=== PATIENT | male | born 1995 | race Caucasian/White ===

== ENCOUNTER → 2017-09-16 | Outpatient (CLI) | payer OTHER ==
[~2017-09-16] MED LIST: ALBUTEROL0.09 MG/A2 IH; AMOXICILLIN500 MG PO; ATIVAN1 MG PO; CIPRODEX 0.3%-7.5 ML OT; CLARITIN10 MG PO; DEPAKOTE500 MG PO; FIORICET 325 MG1 TAB PO; FLEXERIL10 MG PO; HYDROCODONE BIT1 T11 PO; LEVOFLOXACIN500 MG PO; LOMOTIL 0.025 M1 TA1 PO; MAXZIDE 25 MG-31 TAB PO; MOTRIN400 MG PO; MOTRIN600 MG PO; MOTRIN800 MG PO; Motrin,Rufen800 MG PO; NAPROSYN375 MG PO; NAPROSYN500 MG PO; NEURONTIN100 MG PO; NKHM; PRELONE5 MG/5 ML PO; RISPERDAL1 MG PO; TESSALON PERLE200 MG PO; TRIMOX500 MG PO; TYLENOL W/CODEI1 TA2 PO; VICODIN ES 7501 TAB PO; ZITHROMAX Z PA250 MG PO; ZOFRAN ODT4 MG SL; ZOFRAN4 MG PO; ZYPREXA10 MG PO
[2017-09-16 15:00] LABS: BASO % 0.6 % (0.0-1.0); EOS # 0.2 10*3/uL (0.0-0.4); EOS % 2.1 % (1.0-4.0); HEMATOCRIT 44.6 % (42.0-52.0); HEMOGLOBIN 15.1 g/dl (14.0-18.0); MEAN CELL VOLUME 88.1 fl (80.0-94.0); MEAN CORPUSCULAR HGB 29.8 pg (27.0-31.0); MEAN CORPUSCULAR HGB CONC 33.9 g/dl (33.0-37.0); MONO # 0.9 10*3/uL (0.1-1.0); NEUT % 56.2 % (47.0-73.0); PLATELET COUNT AUTOMATED 153 10*3/uL (130-400); RED BLOOD COUNT 5.06 10*6/uL (4.50-5.90); WHITE BLOOD COUNT 7.1 10*3/uL (4.8-10.8)
[2017-09-16 15:23] LABS: ALBUMIN 3.9 gm/dl (3.1-4.5); ALKALINE PHOSPHATASE 102 U/L (45-117); BUN 9 mg/dl (7-24); CHLORIDE 103 mmol/L (98-107); CHOLESTEROL 142 mg/dL (<200); CPK 258 U/L (39-308); CREATININE 1.05 mg/dL (0.70-1.30); HDL CHOLESTEROL 35 mg/dl (40-60); LDL CHOLESTEROL 73 mg/dL (9-159); POTASSIUM 3.9 mmol/L (3.5-5.1); SGOT/AST 89 IU/L (3-35); SGPT/ALT 184 U/L (12-78); SODIUM 139 mmol/L (136-145); TRIGLYCERIDES 172 mg/dl (<150); VLDL CHOLESTEROL 34 mg/dL (6-40)
[2017-09-18 17:09] LABS: CREATININE, RANDOM URINE 144.2 mg/dL (Not Estab.)
== END | disposition home or self-care (01) ==
LOC: LAB 14:19
PROVIDERS: Pediatrics
DX: Z00.01 Encounter for general adult medical examination with abnormal findings (principal)

== ENCOUNTER 2018-05-14 00:27 | Inpatient (IN) | payer OTHER ==
[~2018-05-14] VITALS: Ht 182.8 cm; Wt 97.7 kg
--- NOTE | ~2018-05-14 | EKG ---
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
[2018-05-14 00:29] VITALS: BP 128/72
[2018-05-14 00:56] LABS: BASO # 0.1 10*3/uL (0.0-0.1); BASO % 0.3 % (0.0-1.0); EOS # 0.2 10*3/uL (0.0-0.4); EOS % 1.1 % (1.0-4.0); HEMATOCRIT 45.9 % (42.0-52.0); HEMOGLOBIN 15.4 g/dl (14.0-18.0); LYMPH # 2.4 10*3/uL (1.3-4.4); LYMPH % 15.3 % (27.0-41.0); MEAN CELL VOLUME 88.4 fl (80.0-94.0); MEAN CORPUSCULAR HGB 29.7 pg (27.0-31.0); MEAN CORPUSCULAR HGB CONC 33.6 g/dl (33.0-37.0); MEAN PLATELET VOLUME 10.4 fl (9.6-12.3); MONO # 1.4 10*3/uL (0.1-1.0); MONO % 8.7 % (3.0-9.0); NEUT # 11.8 10*3/uL (2.3-7.9); NEUT % 74.2 % (47.0-73.0); PLATELET COUNT AUTOMATED 249 10*3/uL (130-400); RED BLOOD COUNT 5.19 10*6/uL (4.50-5.90); RED CELL DISTRI WIDTH 13.2 % (0-14.5); WHITE BLOOD COUNT 15.9 10*3/uL (4.8-10.8)
[2018-05-14 01:12] LABS: ALBUMIN 3.7 gm/dl (3.1-4.5); ALKALINE PHOSPHATASE 94 U/L (45-117); BUN 13 mg/dl (7-24); CHLORIDE 103 mmol/L (98-107); CREATININE 1.06 mg/dL (0.70-1.30); POTASSIUM 3.4 mmol/L (3.5-5.1); SGOT/AST 26 IU/L (3-35); SGPT/ALT 62 U/L (12-78); SODIUM 137 mmol/L (136-145); TOTAL PROTEIN 8.2 gm/dL (6.4-8.2)
[2018-05-14 02:15] VITALS: BP 136/72
[2018-05-14] MEDS ORDERED: CLONAZEPAM1 MG PO (02:59)
[2018-05-14] MEDS ORDERED: SEROQUEL50 MG PO (03:00)
[2018-05-14] MEDS ORDERED: LISINOPRIL20 MG PO (03:00)
[2018-05-14] MEDS ORDERED: PROTONIX40 MG PO (03:01)
[2018-05-14] MEDS ORDERED: VIVITROL380 MG IM (03:01)
[2018-05-14 04:00] VITALS: BP 135/76
[2018-05-14 12:00] VITALS: BP 144/77
[2018-05-14 15:49] LABS: URINE AMPHETAMINES < 1000 (1000ng/ml); URINE BARBITURATES < 200 (200ng/ml); URINE BENZODIAZEPINES < 200 (200ng/ml); URINE CANNABINOIDS (THC) < 50 (50ng/ml); URINE COCAINE < 300 (300ng/ml); URINE METHADONE < 300 (300ng/ml); URINE OPIATES < 300 (300ng/ml)
[2018-05-14 15:56] LABS: URINE PHENCYCLIDINE < 25 (25ng/ml)
[2018-05-14 16:00] VITALS: BP 125/69
[2018-05-14 20:00] VITALS: BP 146/85
[2018-05-15] VITALS: BP 146/73
[2018-05-15 07:27] LABS: BASO # 0.1 10*3/uL (0.0-0.1); BASO % 0.5 % (0.0-1.0); EOS # 0.3 10*3/uL (0.0-0.4); EOS % 2.6 % (1.0-4.0); LYMPH # 2.3 10*3/uL (1.3-4.4); LYMPH % 24.7 % (27.0-41.0); MEAN CELL VOLUME 88.7 fl (80.0-94.0); MEAN CORPUSCULAR HGB 29.5 pg (27.0-31.0); MEAN CORPUSCULAR HGB CONC 33.2 g/dl (33.0-37.0); MONO # 1.3 10*3/uL (0.1-1.0); MONO % 14.1 % (3.0-9.0); NEUT # 5.5 10*3/uL (2.3-7.9); NEUT % 57.7 % (47.0-73.0); PLATELET COUNT AUTOMATED 202 10*3/uL (130-400); RED BLOOD COUNT 4.17 10*6/uL (4.50-5.90); RED CELL DISTRI WIDTH 13.2 % (0-14.5); WHITE BLOOD COUNT 9.5 10*3/uL (4.8-10.8)
[2018-05-15 07:28] LABS: HEMOGLOBIN 12.3 g/dl (14.0-18.0)
[2018-05-15 07:40] LABS: ACT PARTIAL THROMBO TIME 24.5 SECONDS (20.8-31.5)
[2018-05-15 07:51] LABS: BUN 6 mg/dl (7-24); CHLORIDE 110 mmol/L (98-107); CHOLESTEROL 97 mg/dL (<200); CREATININE 0.67 mg/dL (0.70-1.30); FREE T4 1.13 ng/dl (0.76-1.46); HDL CHOLESTEROL 35 mg/dl (40-60); LDL CHOLESTEROL 52 mg/dL (9-159); PHOSPHOROUS 2.7 mg/dL (2.5-4.9); POTASSIUM 3.7 mmol/L (3.5-5.1); SODIUM 142 mmol/L (136-145); TRIGLYCERIDES 48 mg/dl (<150); VLDL CHOLESTEROL 10 mg/dL (6-40)
[2018-05-15 07:58] LABS: THYROID STIM HORMONE (HS) 0.961 uIU/ml (0.358-4.75)
[2018-05-15 08:00] VITALS: BP 113/61
[2018-05-15 12:00] VITALS: BP 140/91
[2018-05-15 16:00] VITALS: BP 147/87
[2018-05-15 20:00] VITALS: BP 140/76
[2018-05-16] VITALS: BP 127/72
[2018-05-16 08:00] VITALS: BP 115/55
[2018-05-16 12:00] VITALS: BP 127/67
[2018-05-16] MEDS ORDERED: BACTRIM 400-801 EACH PO (12:54)
[2018-05-16] MEDS ORDERED: CYCLOBENZAPRINE10 MG PO (12:54)
[2018-05-16 16:00] VITALS: BP 138/70
[2018-05-16 20:00] VITALS: BP 154/98
[2018-05-17] VITALS: BP 143/87
[2018-05-17 08:00] VITALS: BP 110/59
[2018-05-17] MEDS ORDERED: KETOROLAC10 MG PO (11:06)
[2018-05-17 16:39] LABS: VITAMIN D, 25-HYDROXY 15.8 ng/mL (30-100)
== END 2018-05-17 11:57 | disposition home or self-care (01) | DRG 872 ==
LOC: ED 00:27 → EDHOLD 01:10 → 5E 01:10
PROVIDERS: Internal Medicine; Student in an Organized Health Care Education/Training Program
DX: A41.9 Sepsis, unspecified organism (principal); L03.113 Cellulitis of right upper limb; L02.413 Cutaneous abscess of right upper limb; F19.10 Other psychoactive substance abuse, uncomplicated; E87.6 Hypokalemia; F41.9 Anxiety disorder, unspecified; E66.3 Overweight; J45.20 Mild intermittent asthma, uncomplicated; I10 Essential (primary) hypertension; G47.00 Insomnia, unspecified; R73.9 Hyperglycemia, unspecified; K21.9 Gastro-esophageal reflux disease without esophagitis; Z22.322 Carrier or suspected carrier of Methicillin resistant Staphylococcus aureus; Z72.0 Tobacco use; Z71.6 Tobacco abuse counseling; Z83.3 Family history of diabetes mellitus; Z79.899 Other long term (current) drug therapy; Z22.321 Carrier or suspected carrier of Methicillin susceptible Staphylococcus aureus; Z68.29 Body mass index [BMI] 29.0-29.9, adult

== ENCOUNTER 2018-08-01 23:51 | Inpatient (IN) | payer OTHER ==
--- NOTE | ~2018-08-01 | EKG ---
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
[~2018-08-01 23:51] MED LIST changes: +BACTRIM 400-801 EACH PO; +CLONAZEPAM1 MG PO; +CYCLOBENZAPRINE10 MG PO; +KETOROLAC10 MG PO; +LISINOPRIL20 MG PO; +PROTONIX40 MG PO; +SEROQUEL50 MG PO; +VIVITROL380 MG IM
[2018-08-01 23:54] VITALS: BP 133/65
[2018-08-02 01:17] LABS: BASO # 0.1 10*3/uL (0.0-0.1); BASO % 0.8 % (0.0-1.0); EOS # 0.3 10*3/uL (0.0-0.4); EOS % 3.3 % (1.0-4.0); HEMATOCRIT 44.4 % (42.0-52.0); HEMOGLOBIN 14.5 g/dl (14.0-18.0); LYMPH # 3.1 10*3/uL (1.3-4.4); LYMPH % 39.1 % (27.0-41.0); MEAN CELL VOLUME 89.2 fl (80.0-94.0); MEAN CORPUSCULAR HGB 29.1 pg (27.0-31.0); MEAN CORPUSCULAR HGB CONC 32.7 g/dl (33.0-37.0); MONO # 1.1 10*3/uL (0.1-1.0); MONO % 13.9 % (3.0-9.0); NEUT # 3.4 10*3/uL (2.3-7.9); NEUT % 42.6 % (47.0-73.0); PLATELET COUNT AUTOMATED 186 10*3/uL (130-400); RED BLOOD COUNT 4.98 10*6/uL (4.50-5.90)
[2018-08-02 01:24] LABS: BILIRUBIN NEGATIVE (NEGATIVE); BLOOD NEGATIVE (NEGATIVE); CLARITY CLEAR (CLEAR); COLOR YELLOW (YELLOW); GLUCOSE NEGATIVE (NEGATIVE); KETONE NEGATIVE (NEGATIVE); LEUKO ESTERASE NEGATIVE (NEGATIVE); NITRITE NEGATIVE (NEGATIVE); SPECIFIC GRAVITY >= 1.030 (1.005-1.030); UROBILINOGEN 0.2 E.U./dl (0.2-1.0)
[2018-08-02 01:34] LABS: ALKALINE PHOSPHATASE 112 U/L (45-117); BUN 8 mg/dl (7-24); CHLORIDE 110 mmol/L (98-107); POTASSIUM 3.7 mmol/L (3.5-5.1); SGOT/AST 87 IU/L (3-35); SGPT/ALT 143 U/L (12-78); SODIUM 140 mmol/L (136-145); TOTAL PROTEIN 6.7 gm/dL (6.4-8.2)
[2018-08-02 01:37] LABS: ACETAMINOPHEN (TYLENOL) < 5.0 ug/ml (10-30); ETHYL ALCOHOL < 3.0 mg/dl (<3); TROPONIN I < 0.015 ng/ml (<0.045)
[2018-08-02 01:42] LABS: URINE AMPHETAMINES > 1000 (1000ng/ml); URINE BARBITURATES < 200 (200ng/ml); URINE BENZODIAZEPINES > 200 (200ng/ml); URINE CANNABINOIDS (THC) > 50 (50ng/ml); URINE COCAINE > 300 (300ng/ml); URINE METHADONE < 300 (300ng/ml); URINE OPIATES > 300 (300ng/ml); URINE PHENCYCLIDINE < 25 (25ng/ml)
[2018-08-02 01:45] LABS: WBC 0-2 wbc/hpf (0-5)
--- NOTE | 2018-08-02 01:53 | NUR ---
Time: 155 A 23 year old MALE admitted to 5E under services of AURELIANO ALEJO DO. Pt. arrived via wheel chair from ER. Chief complaint: OPIATE WITHDRAWAL. PATIENT ORIENTED TO THE FLOOR 5E CALL LIGHT SYSTEM REVIEWED AND DEMONSTRATED. ALFONSO FLOOD
[2018-08-02 01:55] VITALS: BP 122/77
--- NOTE | 2018-08-02 02:10 | NUR ---
SR. MORALEZ NOTIFIED THAT PATIENT IS ON THE FLOOR AND MED REC IS UP-TO-DATE PER PT. ALSO NOTIFIED THAT PATIENT WANTED THE NICOTROL INHALER INSTEAD OF THE PATCHES. ORDERS RECEIVED FOR NICOTROL INHALER AND TO D/C NICOTINE PATCH AND NICORETTE GUM.
--- NOTE | 2018-08-02 05:33 | NUR ---
scheduled dose of subutex given. patient resting comfortable in bed. call light within reach.
[2018-08-02 08:00] VITALS: BP 124/62
--- NOTE | 2018-08-02 11:54 | NUR ---
PATIENT MEDICATED WITH ROBAXIN AT THIS TIME FOR COMPLAINTS OF MUSCLE ACHES. PATIENT ALSO GIVEN NICOTROL INHALER AND EDUCATED ON ITS USE. RN WILL CONTINUE TO MONITOR THIS PATIENT
[2018-08-02 12:00] VITALS: BP 108/58
--- NOTE | 2018-08-02 12:28 | NUR ---
PATIENT MEETS [facility]. PATIENT IS GOING TO FOLLOW UP WITH [facility] [place] FOR THE VIVITROL SHOT. PATIENT AGREES AND UNDERSTANDS HIS AFTERCARE PLAN. KERWIN PATRICIO B.A. SALES CLERK FOOD
[2018-08-02 16:00] VITALS: BP 128/64
[2018-08-02 20:00] VITALS: BP 133/66
[2018-08-03] VITALS: BP 118/49
[2018-08-03 08:00] VITALS: BP 124/67
--- NOTE | 2018-08-03 08:45 | NUR ---
MEDICATED WITH PRN PO MOTRIN FOR BACK ACHES, IMMODIUM FOR DIARRHEA, AND PROVIDED NICOTROL INHALER CARTRIDGE FOR SMOKING CRAVINGS.
--- NOTE | 2018-08-03 10:16 | NUR ---
Patient resting. Responding to scheduled an prn medications with fewer complaints of pain and anxiety.
[2018-08-03 12:00] VITALS: BP 128/90
--- NOTE | 2018-08-03 14:50 | NUR ---
MEDICATED WITH PRN PO IMMODIUM FOR EPISODE OF DIARRHEA X 1 FOLLOWING THE 4MG DOSE EARLIER.
--- NOTE | 2018-08-03 14:51 | NUR ---
PRN PO ROBAXIN, TYLENOL, AND VISTARIL EFFECTIVE FOR MUSCLE CRAMPS AND ACHES AND ANXIETY.
[2018-08-03 16:00] VITALS: BP 148/78
--- NOTE | 2018-08-03 17:03 | NUR ---
MEDICATED WITH PRN PO MOTRIN AND REQUIP FOR BODY ACHES AND RESTLESS LEGS.
--- NOTE | 2018-08-03 17:11 | NUR ---
MEDICATED WITH PRN PO MAALOX FOR INDIGESTION.
--- NOTE | 2018-08-03 18:26 | NUR ---
Patient resting. Responding to scheduled and prn medications with fewer complaints of pain and anxiety.
--- NOTE | 2018-08-03 18:54 | NUR ---
MEDICATED WITH PRN PO TYLENOL AND ROBAXIN FOR MUSCLE ACHES AND CRAMPS, ALSO VISTARIL FOR ANXIETY, ALSO NICOTROL CARTRIDGE FOR SMOKING CRAVINGS, AND ALSO IMMODIUM FOR CONTINUED DIARRHEA STOOLS.
[2018-08-03 20:00] VITALS: BP 134/60
--- NOTE | 2018-08-03 21:30 | NUR ---
PATIENT MEDICATED WITH TRAZODONE AND IMMODIUM FOR C/O OOSE STOOLS. SEE EMAR. REINFORCED USE OF CALL LIGHT
[2018-08-04] VITALS: BP 111/60
--- NOTE | 2018-08-04 | NUR ---
Patient resting. Responding to scheduled medications with fewer complaints of pain and anxiety.
--- NOTE | 2018-08-04 01:20 | NUR ---
PATIENT MEDICATED WITH ROBAXIN AND VISTARIL PER PRN ORDER FOR C/O MUSCLE ACHINESS AND ANXIETY. SEE EMAR. RINFORCED USE OF CALL LIGHT.
[2018-08-04 08:00] VITALS: BP 132/79
--- NOTE | 2018-08-04 09:00 | NUR ---
MEDICATED WITH PRN PO MOTRIN, ROBAXIN, VISTARIL FOR ANXIETY, AND REQUIP FOR RESTLESS LEGS. PROVIDED NICOTROL INHALER FOR SMOKING CRAVINGS.
--- NOTE | 2018-08-04 09:58 | NUR ---
MEDICATED WITH PRN PO IMMODIUM FOR DIARRHEA STOOL, PRN ZOFRAN AND BENTYL FOR NAUSEA AND ABDOMINAL CRAMPS.
--- NOTE | 2018-08-04 10:28 | NUR ---
Patient resting. Responding to scheduled and prn medications with fewer complaints of pain and anxiety.
[2018-08-04 12:00] VITALS: BP 113/53
--- NOTE | 2018-08-04 15:16 | NUR ---
PATIENT CHANGED HIS AFTERCARE PLAN. PATIENT STATED THAT HE WANTS TO GO TO [facility] IN [place] FOR HIS AFTERCARE PLAN. DE STAFF WILL FOLLOW UP WITH PATIENT CONCERNING HIS AFTERCARE APPOINTMENT. KERWIN PATRICIO B.A. VECTOR CONTROL SPECIALIST
[2018-08-04 16:00] VITALS: BP 120/58
--- NOTE | 2018-08-04 16:00 | NUR ---
MEDICATED WITH PRN PO VISTARIL, TYLENOL AND ROBAXIN FOR ANXIETY AND MUSCLE ACHES/CRAMPS.
--- NOTE | 2018-08-04 17:53 | NUR ---
MEDICATED WITH PRN PO ZOFRAN AND BENTYL FOR NAUSEA/ABDOMINAL CRAMPS, AND MOTRIN FOR BODY ACHES.
--- NOTE | 2018-08-04 18:42 | NUR ---
Patient resting. Responding to prn medications with fewer complaints of pain and anxiety.
[2018-08-04 20:00] VITALS: BP 132/53
[2018-08-05] VITALS: BP 132/75
[2018-08-05 08:00] VITALS: BP 136/86; BP 160/75
[2018-08-05] MEDS ORDERED: METHOCARBAMOL750 M1 PO (08:57)
--- NOTE | 2018-08-05 09:17 | NUR ---
MEDICATED WITH PRN PO ZOFRAN AND BENTYL FOR NAUSEA AND ABDOMINAL CRAMPS, IMMODIUM FOR DIARRHEA STOOL, MAALOX FOR STOMACH UPSET, AND MOTRIN FOR BODY ACHES.
[2018-08-05] MEDS ORDERED: ATARAX,VISTARIL50 MG PO (09:22)
[2018-08-05] MEDS ORDERED: DICYCLOMINE HCL20 MG PO (09:22)
[2018-08-05] MEDS ORDERED: ZOFRAN4 MG PO (09:22)
--- NOTE | 2018-08-05 09:57 | NUR ---
PRN ZOFRAN, BENTYL, MAALOX, AND MOTRIN EFFECTIVE, PER PATIENT.
--- NOTE | 2018-08-05 09:58 | NUR ---
Discharge instructions reviewed with patient. Patient receptive and verbalizes understanding. Follow-up care arranged. Written instructions given to patient. ANTONI BARKLEY
--- NOTE | 2018-08-05 10:03 | NUR ---
PATIENT DISCHARGED TO [facility], AMBULATORY, FOR TRANSPORT HOME BY PRIVATE VEHICLE WITH MOTHER.
[2019-03-01] MEDS ORDERED: SUBOXONE 8 MG-1 EACH SL (17:59)
[2019-03-01] MEDS ORDERED: PROTONIX40 MG PO (22:17)
== END 2018-08-05 10:03 | disposition home or self-care (01) | DRG 897 ==
LOC: ED 23:51 → 5E 08-02 00:55 → EDHOLD 08-02 00:55 → 5E 08-02 01:11
PROVIDERS: Nurse Practitioner Family; ADMIT Internal Medicine
DX: F11.23 Opioid dependence with withdrawal (principal); F41.9 Anxiety disorder, unspecified; G56.00 Carpal tunnel syndrome, unspecified upper limb; E87.8 Other disorders of electrolyte and fluid balance, not elsewhere classified; J45.909 Unspecified asthma, uncomplicated; I10 Essential (primary) hypertension; K21.9 Gastro-esophageal reflux disease without esophagitis; G47.00 Insomnia, unspecified; Z82.49 Family history of ischemic heart disease and other diseases of the circulatory system

== ENCOUNTER 2019-04-14 13:36 | Emergency (ER) | payer OTHER ==
[~2019-04-14] VITALS: Ht 182.8 cm; Wt 86.2 kg
[~2019-04-14 13:36] MED LIST changes: +ATARAX,VISTARIL50 MG PO; +DICYCLOMINE HCL20 MG PO; +METHOCARBAMOL750 M1 PO; +SUBOXONE 8 MG-1 EACH SL
[2019-04-14 14:27] LABS: BASO % 0.4 % (0.0-1.0); EOS % 0.1 % (1.0-4.0); HEMATOCRIT 40.7 % (42.0-52.0); HEMOGLOBIN 13.8 g/dl (14.0-18.0); LYMPH # 1.6 10*3/uL (1.3-4.4); LYMPH % 16.6 % (27.0-41.0); MEAN CELL VOLUME 86.4 fl (80.0-94.0); MEAN CORPUSCULAR HGB 29.3 pg (27.0-31.0); MEAN CORPUSCULAR HGB CONC 33.9 g/dl (33.0-37.0); MEAN PLATELET VOLUME 11.7 fl (9.6-12.3); MONO % 10.4 % (3.0-9.0); NEUT % 72.3 % (47.0-73.0); PLATELET COUNT AUTOMATED 141 10*3/uL (130-400); RED BLOOD COUNT 4.71 10*6/uL (4.50-5.90); WHITE BLOOD COUNT 9.7 10*3/uL (4.8-10.8)
[2019-04-14 14:42] LABS: ALBUMIN 4.4 gm/dl (3.1-4.5); ALKALINE PHOSPHATASE 117 U/L (45-117); BUN 20 mg/dl (7-24); CHLORIDE 107 mmol/L (98-107); CREATININE 0.97 mg/dL (0.70-1.30); POTASSIUM 3.1 mmol/L (3.5-5.1); SGOT/AST 78 IU/L (3-35); SGPT/ALT 134 U/L (12-78); SODIUM 138 mmol/L (136-145); TOTAL PROTEIN 8.6 gm/dL (6.4-8.2)
[2019-04-14] MEDS ORDERED: SEPTDS PO (15:08)
[2019-04-14] MEDS ORDERED: CEPHALEXIN500 M1 PO (15:08)
[2019-04-14] MEDS ORDERED: IBU800 MG PO (15:09)
== END 2019-04-14 15:10 | disposition home or self-care (01) ==
LOC: ED 13:36
PROVIDERS: Nurse Practitioner Family
DX: L02.413 Cutaneous abscess of right upper limb (principal); L03.113 Cellulitis of right upper limb; E87.6 Hypokalemia; F17.200 Nicotine dependence, unspecified, uncomplicated; Z86.14 Personal history of Methicillin resistant Staphylococcus aureus infection; Z79.899 Other long term (current) drug therapy

== ENCOUNTER 2019-07-04 12:08 | Emergency (ER) | payer OTHER ==
[~2019-07-04] VITALS: Ht 182.8 cm; Wt 79.4 kg
[~2019-07-04 12:08] MED LIST changes: +CEPHALEXIN500 M1 PO; +IBU800 MG PO; +SEPTDS PO
[2019-07-04 12:49] LABS: BASO # 0.1 10*3/uL (0.0-0.1); BASO % 0.6 % (0.0-1.0); EOS # 0.1 10*3/uL (0.0-0.4); HEMATOCRIT 43.4 % (42.0-52.0); HEMOGLOBIN 14.4 g/dl (14.0-18.0); LYMPH # 2.9 10*3/uL (1.3-4.4); LYMPH % 34.8 % (27.0-41.0); MEAN CELL VOLUME 85.6 fl (80.0-94.0); MEAN CORPUSCULAR HGB 28.4 pg (27.0-31.0); MEAN CORPUSCULAR HGB CONC 33.2 g/dl (33.0-37.0); MEAN PLATELET VOLUME 11.1 fl (9.6-12.3); NEUT # 4.2 10*3/uL (2.3-7.9); NEUT % 51.4 % (47.0-73.0); PLATELET COUNT AUTOMATED 192 10*3/uL (130-400); RED BLOOD COUNT 5.07 10*6/uL (4.50-5.90); RED CELL DISTRI WIDTH 13.2 % (0-14.5); WHITE BLOOD COUNT 8.2 10*3/uL (4.8-10.8)
[2019-07-04 13:08] LABS: ALBUMIN 4.5 gm/dl (3.1-4.5); BUN 16 mg/dl (7-24); CHLORIDE 107 mmol/L (98-107); CREATININE 0.84 mg/dL (0.70-1.30); POTASSIUM 3.4 mmol/L (3.5-5.1); SGOT/AST 108 IU/L (3-35); SGPT/ALT 85 U/L (12-78); SODIUM 139 mmol/L (136-145)
[2019-07-04 13:10] LABS: ALKALINE PHOSPHATASE 102 U/L (45-117); TOTAL PROTEIN 8.5 gm/dL (6.4-8.2)
[2019-07-04] MEDS ORDERED: ZYRTEC10 MG PO (13:58)
[2019-07-04] MEDS ORDERED: AMOXICILLIN500 M2 PO (13:58)
[2019-07-04] MEDS ORDERED: FLONASE ALLERG9.9 ML NAS (13:58)
== END 2019-07-04 14:26 | disposition home or self-care (01) ==
LOC: ED 12:08
PROVIDERS: Nurse Practitioner Family
DX: J01.90 Acute sinusitis, unspecified (principal); R20.2 Paresthesia of skin; R20.0 Anesthesia of skin; I10 Essential (primary) hypertension; J45.909 Unspecified asthma, uncomplicated; F17.200 Nicotine dependence, unspecified, uncomplicated; Z79.2 Long term (current) use of antibiotics; Z79.899 Other long term (current) drug therapy

== ENCOUNTER 2019-09-24 16:23 | Emergency (ER) | payer OTHER ==
[~2019-09-24] VITALS: Ht 182.8 cm; Wt 79.4 kg
[~2019-09-24 16:23] MED LIST changes: +AMOXICILLIN500 M2 PO; +FLONASE ALLERG9.9 ML NAS; +ZYRTEC10 MG PO
[2019-09-24] MEDS ORDERED: AMOXICILLIN500 M3 PO (18:53)
[2019-09-24] MEDS ORDERED: IBU800 MG PO (18:53)
== END 2019-09-24 19:05 | disposition home or self-care (01) ==
LOC: ED 16:23
DX: S02.5XXA Fracture of tooth (traumatic), initial encounter for closed fracture (principal); S00.432A Contusion of left ear, initial encounter; J06.9 Acute upper respiratory infection, unspecified; R51 Headache; F17.200 Nicotine dependence, unspecified, uncomplicated; Y04.2XXA Assault by strike against or bumped into by another person, initial encounter; Y93.89 Activity, other specified; Y92.89 Other specified places as the place of occurrence of the external cause; Y99.8 Other external cause status

== ENCOUNTER 2021-04-17 18:46 | Emergency (ER) | payer OTHER ==
[~2021-04-17 18:46] MED LIST changes: +AMOXICILLIN500 M3 PO
== END 2021-04-17 23:24 ==
LOC: ED 18:46
DX: M79.671 Pain in right foot (principal); Z53.21 Procedure and treatment not carried out due to patient leaving prior to being seen by health care provider

== ENCOUNTER 2022-03-29 14:39 | Emergency (ER) | payer OTHER ==
[~2022-03-29] VITALS: Wt 104.3 kg
[2022-03-29 16:37] LABS: BASO # 0.1 10*3/uL (0.0-0.1); BASO % 0.6 % (0.0-1.0); EOS # 0.2 10*3/uL (0.0-0.4); EOS % 1.7 % (1.0-4.0); HEMATOCRIT 45.4 % (42.0-52.0); LYMPH # 2.9 10*3/uL (1.3-4.4); LYMPH % 24.2 % (27.0-41.0); MEAN CORPUSCULAR HGB 28.7 pg (27.0-31.0); MEAN CORPUSCULAR HGB CONC 33.7 g/dl (33.0-37.0); MEAN PLATELET VOLUME 12.4 fl (9.6-12.3); MONO # 0.9 10*3/uL (0.1-1.0); MONO % 7.7 % (3.0-9.0); NEUT # 7.8 10*3/uL (2.3-7.9); NEUT % 65.5 % (47.0-73.0); PLATELET COUNT AUTOMATED 200 10*3/uL (130-400); RED BLOOD COUNT 5.34 10*6/uL (4.50-5.90); RED CELL DISTRI WIDTH 13.5 % (0-14.5); WHITE BLOOD COUNT 11.9 10*3/uL (4.8-10.8)
[2022-03-29 16:46] LABS: ALKALINE PHOSPHATASE 123 U/L (45-117); BUN 11 mg/dl (7-24); CHLORIDE 107 mmol/L (98-107); CREATININE 0.77 mg/dL (0.70-1.30); POTASSIUM 3.5 mmol/L (3.5-5.1); SGOT/AST 37 IU/L (3-35); SGPT/ALT 52 U/L (12-78); SODIUM 138 mmol/L (136-145); TOTAL PROTEIN 8.1 gm/dL (6.4-8.2)
[2022-03-29] MEDS ORDERED: SEPTDS PO (17:47)
[2022-03-29] MEDS ORDERED: TYLENOL325 M1 PO (17:48)
[2022-03-29] MEDS ORDERED: NAPROXEN250 MG PO (17:48)
== END 2022-03-29 18:06 | disposition left against medical advice (07) ==
LOC: ED 14:39
PROVIDERS: Emergency Medicine
DX: L02.511 Cutaneous abscess of right hand (principal); L03.113 Cellulitis of right upper limb; F41.9 Anxiety disorder, unspecified; J45.909 Unspecified asthma, uncomplicated; I10 Essential (primary) hypertension; K21.9 Gastro-esophageal reflux disease without esophagitis; E46 Unspecified protein-calorie malnutrition; F17.200 Nicotine dependence, unspecified, uncomplicated; Z79.2 Long term (current) use of antibiotics; Z79.899 Other long term (current) drug therapy; Z53.29 Procedure and treatment not carried out because of patient's decision for other reasons

== ENCOUNTER 2022-08-16 13:04 | Emergency (ER) | payer OTHER ==
[~2022-08-16] VITALS: Wt 107.0 kg
[~2022-08-16 13:04] MED LIST changes: +NAPROXEN250 MG PO; +TYLENOL325 M1 PO
[2022-08-16] MEDS ORDERED: MECLIZINE HCL25 M2 PO (14:07)
== END 2022-08-16 14:18 | disposition home or self-care (01) ==
LOC: ED 13:04
DX: S09.90XA Unspecified injury of head, initial encounter (principal); Z98.890 Other specified postprocedural states; F14.90 Cocaine use, unspecified, uncomplicated; F17.200 Nicotine dependence, unspecified, uncomplicated; F19.90 Other psychoactive substance use, unspecified, uncomplicated; Y04.0XXA Assault by unarmed brawl or fight, initial encounter; Y93.89 Activity, other specified; Y92.89 Other specified places as the place of occurrence of the external cause; Y99.8 Other external cause status

== ENCOUNTER 2022-08-20 16:28 | Emergency (ER) | payer OTHER ==
[~2022-08-20] VITALS: Ht 182.8 cm; Wt 107.0 kg
[~2022-08-20 16:28] MED LIST changes: +MECLIZINE HCL25 M2 PO
[2022-08-21] MEDS ORDERED: NEURONTIN300 MG PO (17:47)
[2022-08-21] MEDS ORDERED: REMERON30 M1 PO (17:50)
[2022-08-25] MEDS ORDERED: LIBRIUM5 MG PO (13:12)
== END 2022-08-20 16:50 | disposition left against medical advice (07) ==
LOC: ED 16:28
DX: F19.139 Other psychoactive substance abuse with withdrawal, unspecified (principal); Z53.21 Procedure and treatment not carried out due to patient leaving prior to being seen by health care provider

== ENCOUNTER 2022-08-21 10:25 | Inpatient (IN) | payer OTHER ==
[~2022-08-21] VITALS: Ht 182.8 cm; Wt 99.0 kg
[2022-08-21 10:35] VITALS: BP 97/65
[2022-08-21 11:19] LABS: BASO % 0.3 % (0.0-1.0); EOS # 0.1 10*3/uL (0.0-0.4); EOS % 0.7 % (1.0-4.0); HEMATOCRIT 49.2 % (42.0-52.0); LYMPH # 2.2 10*3/uL (1.3-4.4); LYMPH % 20.6 % (27.0-41.0); MEAN CELL VOLUME 85.4 fl (80.0-94.0); MEAN CORPUSCULAR HGB 28.8 pg (27.0-31.0); MEAN CORPUSCULAR HGB CONC 33.7 g/dl (33.0-37.0); MONO # 0.8 10*3/uL (0.1-1.0); NEUT # 7.7 10*3/uL (2.3-7.9); PLATELET COUNT AUTOMATED 202 10*3/uL (130-400); RED BLOOD COUNT 5.76 10*6/uL (4.50-5.90); WHITE BLOOD COUNT 10.8 10*3/uL (4.8-10.8)
[2022-08-21 11:35] LABS: BILIRUBIN Negative (Negative); BLOOD Negative (Negative); CLARITY Turbid (Clear); COLOR Yellow (Yellow); GLUCOSE Negative (Negative); KETONE Trace (Negative); LEUKO ESTERASE Negative (Negative); NITRITE Negative (Negative)
[2022-08-21 11:42] LABS: URINE AMPHETAMINES Negative (1000ng/ml); URINE BARBITURATES Negative (200ng/ml); URINE BENZODIAZEPINES Positive (200ng/ml); URINE CANNABINOIDS (THC) Positive (50ng/ml); URINE COCAINE Negative (300ng/ml); URINE METHADONE Negative (300ng/ml); URINE OPIATES Negative (300ng/ml); URINE PHENCYCLIDINE Negative (25ng/ml)
[2022-08-21 11:44] LABS: ALKALINE PHOSPHATASE 105 U/L (46-116); BUN 8 mg/dl (9-23); CHLORIDE 107 mmol/L (98-107); CPK 31 U/L (34-171); POTASSIUM 3.2 mmol/L (3.4-5.1); SGPT/ALT 21 U/L (10-49); TOTAL PROTEIN 8.3 gm/dL (6.0-8.0)
[2022-08-21 11:56] LABS: ETHYL ALCOHOL < 3.0 mg/dl (<3)
[2022-08-21 12:07] LABS: BACTERIA 3+; EPITHELIAL CELLS 0-2
[2022-08-21 12:47] VITALS: BP 128/86
[2022-08-21 16:00] VITALS: BP 127/76
[2022-08-21] MEDS ORDERED: NEURONTIN300 MG PO (17:47)
[2022-08-21] MEDS ORDERED: REMERON30 M1 PO (17:50)
[2022-08-21 20:00] VITALS: BP 129/68
[2022-08-22] VITALS: BP 123/68
[2022-08-22 06:19] LABS: BASO % 0.4 % (0.0-1.0); EOS % 0.2 % (1.0-4.0); HEMATOCRIT 46.1 % (42.0-52.0); LYMPH # 2.7 10*3/uL (1.3-4.4); LYMPH % 23.3 % (27.0-41.0); MEAN CELL VOLUME 84.3 fl (80.0-94.0); MEAN CORPUSCULAR HGB 28.5 pg (27.0-31.0); MEAN CORPUSCULAR HGB CONC 33.8 g/dl (33.0-37.0); MEAN PLATELET VOLUME 12.3 fl (9.6-12.3); MONO # 0.9 10*3/uL (0.1-1.0); MONO % 7.8 % (3.0-9.0); NEUT # 7.8 10*3/uL (2.3-7.9); NEUT % 68.1 % (47.0-73.0); PLATELET COUNT AUTOMATED 199 10*3/uL (130-400); RED BLOOD COUNT 5.47 10*6/uL (4.50-5.90); RED CELL DISTRI WIDTH 12.6 % (0-14.5); WHITE BLOOD COUNT 11.4 10*3/uL (4.8-10.8)
[2022-08-22 08:00] VITALS: BP 126/74
[2022-08-22 09:00] VITALS: BP 126/74
[2022-08-22 12:00] VITALS: BP 125/67
[2022-08-22 16:00] VITALS: BP 129/67
[2022-08-22 20:00] VITALS: BP 117/69
[2022-08-23] VITALS: BP 118/75
[2022-08-23 08:00] VITALS: BP 94/77
[2022-08-23 12:00] VITALS: BP 124/68
[2022-08-23 16:00] VITALS: BP 122/76
[2022-08-23 20:00] VITALS: BP 116/62
[2022-08-24] VITALS: BP 115/54
[2022-08-24 07:51] LABS: BASO # 0.1 10*3/uL (0.0-0.1); BASO % 0.6 % (0.0-1.0); EOS # 0.1 10*3/uL (0.0-0.4); EOS % 0.8 % (1.0-4.0); HEMATOCRIT 45.4 % (42.0-52.0); LYMPH # 3.9 10*3/uL (1.3-4.4); LYMPH % 30.7 % (27.0-41.0); MEAN CELL VOLUME 84.4 fl (80.0-94.0); MEAN CORPUSCULAR HGB 28.3 pg (27.0-31.0); MEAN CORPUSCULAR HGB CONC 33.5 g/dl (33.0-37.0); MEAN PLATELET VOLUME 11.2 fl (9.6-12.3); MONO # 1.1 10*3/uL (0.1-1.0); MONO % 8.3 % (3.0-9.0); NEUT # 7.6 10*3/uL (2.3-7.9); NEUT % 59.4 % (47.0-73.0); PLATELET COUNT AUTOMATED 205 10*3/uL (130-400); RED BLOOD COUNT 5.38 10*6/uL (4.50-5.90); RED CELL DISTRI WIDTH 12.7 % (0-14.5); WHITE BLOOD COUNT 12.8 10*3/uL (4.8-10.8)
[2022-08-24 08:00] VITALS: BP 123/75
[2022-08-24 09:24] LABS: BUN 15 mg/dl (9-23); CHLORIDE 108 mmol/L (98-107); POTASSIUM 3.4 mmol/L (3.4-5.1)
[2022-08-24 12:00] VITALS: BP 123/68
[2022-08-24] MEDS ORDERED: DOXYCYCLINE MO100 MG PO (12:14)
[2022-08-24] MEDS ORDERED: LIBRIUM5 MG PO ×2 (12:14)
[2022-08-24] MEDS ORDERED: ATARAX,VISTARIL50 MG PO (12:14)
[2022-08-24 15:06] VITALS: BP 120/72
[2022-08-25] MEDS ORDERED: LIBRIUM5 MG PO (13:12)
== END 2022-08-24 15:05 | disposition home or self-care (01) | DRG 773 ==
LOC: ED 10:25 → EDHOLD 12:19 → 5E 12:19
PROVIDERS: Emergency Medicine; Student in an Organized Health Care Education/Training Program; ADMIT Internal Medicine; ATTEND Internal Medicine
DX: F11.23 Opioid dependence with withdrawal (principal); E87.6 Hypokalemia; F17.210 Nicotine dependence, cigarettes, uncomplicated; F41.9 Anxiety disorder, unspecified; K21.9 Gastro-esophageal reflux disease without esophagitis; F12.90 Cannabis use, unspecified, uncomplicated; F13.10 Sedative, hypnotic or anxiolytic abuse, uncomplicated; B19.20 Unspecified viral hepatitis C without hepatic coma; S71.102A Unspecified open wound, left thigh, initial encounter; X58.XXXA Exposure to other specified factors, initial encounter; Z82.3 Family history of stroke; Y93.89 Activity, other specified; Y92.89 Other specified places as the place of occurrence of the external cause; Y99.8 Other external cause status

== ENCOUNTER 2022-11-18 21:14 | Emergency (ER) | payer OTHER ==
[~2022-11-18] VITALS: Wt 90.7 kg
[~2022-11-18 21:14] MED LIST changes: +DOXYCYCLINE MO100 MG PO; +LIBRIUM5 MG PO; +NEURONTIN300 MG PO; +REMERON30 M1 PO
[2022-11-18] MEDS ORDERED: ONDANSETRON4 MG SL (22:51)
[2022-11-18] MEDS ORDERED: ZITHROMAX250 MG PO (22:51)
[2022-11-18] MEDS ORDERED: PREDNISONE20 M1 PO (22:51)
[2022-11-18] MEDS ORDERED: METHOCARBAMOL500 M1 PO (22:52)
[2022-11-19] MEDS ORDERED: PREDNISONE20 M1 PO (10:30)
[2022-11-19] MEDS ORDERED: ZITHROMAX250 MG PO (10:30)
[2022-11-19] MEDS ORDERED: CYCLOBENZAPRINE10 MG PO (10:30)
[2022-11-19] MEDS ORDERED: ONDANSETRON4 MG SL (10:30)
== END 2022-11-18 23:20 | disposition home or self-care (01) ==
LOC: ED 21:14
DX: S39.012A Strain of muscle, fascia and tendon of lower back, initial encounter (principal); Z20.822 Contact with and (suspected) exposure to COVID-19; B34.9 Viral infection, unspecified; F17.210 Nicotine dependence, cigarettes, uncomplicated; X58.XXXA Exposure to other specified factors, initial encounter; Y93.89 Activity, other specified; Y92.89 Other specified places as the place of occurrence of the external cause; Y99.8 Other external cause status

== ENCOUNTER 2022-11-25 16:30 | Emergency (ER) | payer OTHER ==
[~2022-11-25] VITALS: Ht 185.4 cm; Wt 99.8 kg
[~2022-11-25 16:30] MED LIST changes: +METHOCARBAMOL500 M1 PO; +ONDANSETRON4 MG SL; +PREDNISONE20 M1 PO; +ZITHROMAX250 MG PO
== END 2022-11-25 21:09 | disposition home or self-care (01) ==
LOC: ED 16:30
DX: J40 Bronchitis, not specified as acute or chronic (principal); M54.50 Low back pain, unspecified; F17.210 Nicotine dependence, cigarettes, uncomplicated

== ENCOUNTER 2023-02-27 11:51 | Emergency (ER) | payer OTHER ==
[~2023-02-27] VITALS: Ht 182.8 cm; Wt 95.3 kg
[2023-02-27] MEDS ORDERED: QUETIAPINE FUMA50 M1 PO (14:45)
[2023-02-27] MEDS ORDERED: SUBOXONE 8 MG-1 EACH SL (14:46)
[2023-02-27 15:53] LABS: BASO % 0.1 % (0.0-1.0); HEMATOCRIT 44.7 % (42.0-52.0); LYMPH # 0.8 10*3/uL (1.3-4.4); MEAN CELL VOLUME 84.2 fl (80.0-94.0); MEAN CORPUSCULAR HGB 28.6 pg (27.0-31.0); MEAN PLATELET VOLUME 10.5 fl (9.6-12.3); MONO # 0.8 10*3/uL (0.1-1.0); MONO % 4.9 % (3.0-9.0); NEUT # 14.9 10*3/uL (2.3-7.9); NEUT % 89.5 % (47.0-73.0); PLATELET COUNT AUTOMATED 264 10*3/uL (130-400); RED BLOOD COUNT 5.31 10*6/uL (4.50-5.90); RED CELL DISTRI WIDTH 13.1 % (0-14.5); WHITE BLOOD COUNT 16.7 10*3/uL (4.8-10.8)
[2023-02-27 16:28] LABS: ALKALINE PHOSPHATASE 103 U/L (46-116); BUN 11 mg/dl (9-23); CHLORIDE 99 mmol/L (98-107); LIPASE 24 U/L (12-53); POTASSIUM 4.4 mmol/L (3.4-5.1); SGPT/ALT 38 U/L (10-49); TOTAL PROTEIN 7.6 gm/dL (6.0-8.0)
[2023-03-05 09:09] LABS: ANAEROBE RESULT 1 Bacteroides fragilis (.)
== END 2023-02-27 18:49 | disposition short-term general hospital (02) ==
LOC: ED 11:51
PROVIDERS: Emergency Medicine
DX: K65.1 Peritoneal abscess (principal); A41.9 Sepsis, unspecified organism; R11.10 Vomiting, unspecified; F17.210 Nicotine dependence, cigarettes, uncomplicated; Z79.899 Other long term (current) drug therapy; Z96.22 Myringotomy tube(s) status

== ENCOUNTER 2023-05-14 20:01 | Emergency (ER) | payer SELFPAY ==
[~2023-05-14] VITALS: Ht 182.8 cm; Wt 90.3 kg
[~2023-05-14 20:01] MED LIST changes: +GABAPENTIN100 M2 PO; +QUETIAPINE FUMA50 M1 PO; +STRATTERA25 MG PO
[2023-05-14] MEDS ORDERED: PENICILLIN VK500 MG PO (20:40)
== END 2023-05-14 21:00 | disposition home or self-care (01) ==
LOC: ED 20:01
DX: K02.9 Dental caries, unspecified (principal); I10 Essential (primary) hypertension; F31.9 Bipolar disorder, unspecified; F41.9 Anxiety disorder, unspecified; J45.909 Unspecified asthma, uncomplicated; K08.89 Other specified disorders of teeth and supporting structures; Z98.890 Other specified postprocedural states; F14.90 Cocaine use, unspecified, uncomplicated; F17.210 Nicotine dependence, cigarettes, uncomplicated

== ENCOUNTER 2024-02-18 22:15 | Emergency (ER) | payer SELFPAY ==
[~2024-02-18] VITALS: Ht 185.4 cm; Wt 82.1 kg
[~2024-02-18 22:15] MED LIST changes: +PENICILLIN VK500 MG PO
[2024-02-18] MEDS ORDERED: IBUPROFEN 800 MG TAB PO ONE (22:50)
== END 2024-02-18 22:49 | disposition home or self-care (01) ==
LOC: ED 22:15
DX: S06.0X0A Concussion without loss of consciousness, initial encounter (principal); F31.9 Bipolar disorder, unspecified; L56.8 Other specified acute skin changes due to ultraviolet radiation; F41.9 Anxiety disorder, unspecified; I10 Essential (primary) hypertension; F17.210 Nicotine dependence, cigarettes, uncomplicated; F14.90 Cocaine use, unspecified, uncomplicated; Z98.890 Other specified postprocedural states; W22.03XA Walked into furniture, initial encounter; Y93.89 Activity, other specified; Y92.009 Unspecified place in unspecified non-institutional (private) residence as the place of occurrence of the external cause; Y99.8 Other external cause status